=== PATIENT | female | born 2000 | race Caucasian/White ===

== ENCOUNTER 2024-07-14 12:29 | Emergency (ER) | payer OTHER ==
[~2024-07-14] VITALS: Ht 172.7 cm; Wt 109.7 kg
[2024-07-14] MEDS ORDERED: FAMOTIDINE20 MG PO (12:55)
[2024-07-14 13:10] LABS: BASOPHILS 0.6 % (0-2); HEMATOCRIT 33.5 % (35.0-50.0); HEMOGLOBIN 11.7 g/dL (12.0-18.0); LYMPHOCYTES 33.5 % (24-44); MCH 31.9 (27-36); MCHC 34.8 g/dl (30-36); MCV 91.7 fl (81-99); MONOCYTES 5.4 % (0-12); NEUTROPHILS 59.5 % (39-80); PLATELET COUNT 240 K/uL (140-440); RBC 3.65 M/ul (4.3-5.7); RDW 13.3 (10.5-15.0)
[2024-07-14 13:19] LABS: ALBUMIN 2.4 g/dL (3.4-5.0); ALBUMIN/GLOBULIN RATIO 0.56 (1.1-2.4); ANION GAP 12.2 (7-21); BILIRUBIN, TOTAL 0.2 mg/dL (0.2-1.0); BUN/CREATININE RATIO 15.11 (6.0-28.6); CALCIUM 8.8 mg/dL (8.5-10.1); CREATININE, SERUM 0.86 mg/dL (0.55-1.02); POTASSIUM 4.2 mmol/L (3.5-5.1); PROTEIN, TOTAL 6.7 g/dL (6.4-8.2)
[2024-07-14 14:40] LABS: BILIRUBIN, URINE NEGATIVE (negative); BLOOD/HGB, URINE LARGE (Negative); KETONE, URINE NEGATIVE (Negative); LEUK ESTERASE, URINE NEGATIVE (negative); NITRITE, URINE NEGATIVE (negative)
[2024-07-14 14:49] LABS: RED BLOOD CELLS, URINE 41-50 /hpf (0-5)
[2024-07-14 14:50] LABS: CRYSTALS, URINE NONE SEEN (0-1+); EPITHELIAL CELLS, URINE SQUAMOUS 2+ /lpf (0-1+)
[2024-07-14 14:51] LABS: BACTERIA, URINE RARE /hpf (negative); CASTS, URINE NONE SEEN \\lpf; COLLECTION TYPE, URINE CLEAN CATCH; REFLEX CULTURE, URINE No (No)
[2024-07-14] MEDS ORDERED: hydrALAZINE HCL 20 MG/ML VIAL IV ONE (15:15)
[2024-07-14] MEDS ORDERED: HYDRALAZINE HCL10 MG PO (15:38)
[2024-07-14 16:47] VITALS: BP 157/102
--- NOTE | 2024-07-15 19:42 | EKG ---
[facility] [address] [facility] [address] [place] [address] Signed Normal sinus rhythm with sinus arrhythmia Normal ECG No previous ECGs available Confirmed by Joseph Sarkar MD ([id number]) on 07/15/2024 7:41:53 PM Electronically Signed By: JOSEPH SARKAR MD 07/15/241941 PATIENT NAME: SUBHA MCGEE Electrocardiogram DATE OF : 4 PHYSICIAN: JOSEPH SARKAR MD REPORT #: [id number] REPORT IS CONFIDENTIAL AND NOT TO BE RELEASED WITHOUT AUTHORIZATION
== END 2024-07-14 16:48 | disposition home or self-care (01) ==
LOC: ED 12:29
PROVIDERS: Emergency Medicine
DX: O16.5 Unspecified maternal hypertension, complicating the puerperium (principal)
CPT/HCPCS: 36415; 80053; 81001; 85025; 93005; 93010; 93971; 96374; 99284-25; J0360